=== PATIENT | female | born 1960 | race Caucasian/White ===

== ENCOUNTER 2018-09-27 10:21 | Day surgery (SDC) | payer MEDICARE ==
[2018-09-27] MEDS ORDERED: Marcaine 0.5% SDV 10 ML IJ ONE (10:22)
[2018-09-27] MEDS ORDERED: Depo-Medrol 40 MG/ML IM ONE (10:22)
[2018-09-27] MEDS ORDERED: Ketamine HCl 50 MG/ML ONE (11:41)
[2018-09-27] MEDS ORDERED: DIPRIVAN 200 MG/20 ML IV ONE (11:41)
--- NOTE | 2018-09-27 13:37 | XRAY ---
Indication: Bilateral SI joint injection. Intraoperative fluoroscopy was provided for 18 seconds. 4 digital spot images submitted for interpretation demonstrates posterior needle tip projecting over the inferior left and right SI joints. Correlate with intraoperative findings/report. Incidental partially visualized lower lumbar posterior fusion hardware.
--- NOTE | 2018-09-27 14:02 | XRAY ---
18 seconds fluoroscopy time in surgery for bilateral SI joint injections.
[2018-09-27] MEDS ORDERED: Lactated Ringers 1,000 ML IV ONE (15:25)
== END 2018-09-27 12:09 | disposition home or self-care (01) ==
LOC: SDC-PAIN 10:21
PROVIDERS: ATTEND Psychiatry & Neurology Pain Medicine
DX: M46.1 Sacroiliitis, not elsewhere classified (principal); E11.9 Type 2 diabetes mellitus without complications; I10 Essential (primary) hypertension; M06.9 Rheumatoid arthritis, unspecified; K21.9 Gastro-esophageal reflux disease without esophagitis; G47.30 Sleep apnea, unspecified; F41.8 Other specified anxiety disorders
CPT/HCPCS: 72202; 77002; 82962; G0260; 27096; J1030; J2704

== ENCOUNTER 2019-01-17 08:44 | Day surgery (SDC) | payer MEDICARE ==
[2019-01-17] MEDS ORDERED: Depo-Medrol 40 MG/ML IM ONE (08:45)
[2019-01-17] MEDS ORDERED: Xylocaine-Mpf 2% 5 Ml Vial IJ ONE (08:45)
[2019-01-17] MEDS ORDERED: DIPRIVAN 200 MG/20 ML IV ONE (09:57)
[2019-01-17] MEDS ORDERED: Ketamine HCl 50 MG/ML ONE (09:57)
--- NOTE | 2019-01-17 11:00 | XRAY ---
Indication: Bilateral L4-S1 MBB. Intraoperative fluoroscopy was provided for 21 seconds. Single digital spot image submitted for interpretation demonstrates posterior needle tips projecting over the expected course of the left and right L4-S1 nerve roots. Correlate with intraoperative findings/report. Incidental L5-S1 posterior fusion hardware.
--- NOTE | 2019-01-17 11:10 | XRAY ---
21 seconds fluoroscopy time in surgery for bilateral L4-S1 MBB.
[2019-01-17] MEDS ORDERED: Lactated Ringers 1,000 ML IV ONE (14:31)
== END 2019-01-17 10:40 | disposition home or self-care (01) ==
LOC: SDC-PAIN 08:44
PROVIDERS: ATTEND Psychiatry & Neurology Pain Medicine
DX: M47.816 Spondylosis without myelopathy or radiculopathy, lumbar region (principal); E11.9 Type 2 diabetes mellitus without complications; M06.9 Rheumatoid arthritis, unspecified; I10 Essential (primary) hypertension; G47.30 Sleep apnea, unspecified; F41.8 Other specified anxiety disorders; Z79.899 Other long term (current) drug therapy
CPT/HCPCS: 64493; 64494; 72020; 77002; 82962; J1030; J2704

== ENCOUNTER 2019-02-28 11:10 | Day surgery (SDC) | payer MEDICARE ==
[2019-02-28] MEDS ORDERED: Marcaine 0.5% SDV 10 ML IJ ONE (11:11)
[2019-02-28] MEDS ORDERED: Depo-Medrol 40 MG/ML IM ONE (11:11)
[2019-02-28] MEDS ORDERED: DIPRIVAN 200 MG/20 ML IV ONE (12:26)
[2019-02-28] MEDS ORDERED: Ketamine HCl 50 MG/ML ONE (12:27)
--- NOTE | 2019-02-28 13:09 | XRAY ---
Indication: Bilateral L4-S1 MBB. Intraoperative fluoroscopy was provided for 23 seconds. 3 digital spot images submitted for interpretation demonstrates posterior needle tips projecting over the expected course of the left and right L4-S1 nerve roots. Correlate with intraoperative findings/report. Incidental L5-S1 posterior fusion hardware and epidural catheter/tubing.
--- NOTE | 2019-02-28 13:28 | XRAY ---
23 seconds fluoroscopy time in surgery for bilateral L4-S1 MBB.
[2019-02-28] MEDS ORDERED: Lactated Ringers 1,000 ML IV ONE (15:31)
== END 2019-02-28 12:57 | disposition home or self-care (01) ==
LOC: SDC-PAIN 11:10
PROVIDERS: ATTEND Psychiatry & Neurology Pain Medicine
DX: M47.816 Spondylosis without myelopathy or radiculopathy, lumbar region (principal); E11.9 Type 2 diabetes mellitus without complications; M06.9 Rheumatoid arthritis, unspecified; I10 Essential (primary) hypertension; F41.8 Other specified anxiety disorders; K21.9 Gastro-esophageal reflux disease without esophagitis; M19.90 Unspecified osteoarthritis, unspecified site; Z86.79 Personal history of other diseases of the circulatory system; Z79.899 Other long term (current) drug therapy
CPT/HCPCS: 64493; 64494; 72020; 77002; 82962; J1030; J2704

== ENCOUNTER 2019-04-11 08:10 | Day surgery (SDC) | payer MEDICARE ==
[~2019-04-11 08:10] MED LIST: DIPRIVAN 200 MG/20 ML IV ONE; Ketamine HCl 50 MG/ML ONE
[2019-04-11] MEDS ORDERED: Marcaine 0.5% SDV 10 ML IJ ONE (08:11)
[2019-04-11] MEDS ORDERED: Xylocaine 1% Vial 30 ML PF IJ ONE (08:11)
--- NOTE | 2019-04-11 10:42 | XRAY ---
Indication: Right L4-S1 RFA. Intraoperative fluoroscopy was provided for 32 seconds. 3 digital spot images submitted for interpretation demonstrates posterior needle tips projecting over the expected course of the right L4-S1 nerve roots. Correlate with intraoperative findings/report. Incidental partially visualized L5-S1 posterior fusion hardware and epidural catheter/tubing.
--- NOTE | 2019-04-11 10:54 | XRAY ---
32 seconds fluoroscopy time in surgery for right L4-S1 RFA.
[2019-04-11] MEDS ORDERED: Lactated Ringers 1,000 ML IV ONE (13:37)
== END 2019-04-11 09:45 | disposition home or self-care (01) ==
LOC: SDC-PAIN 08:10
PROVIDERS: ATTEND Psychiatry & Neurology Pain Medicine
DX: M47.816 Spondylosis without myelopathy or radiculopathy, lumbar region (principal); M47.817 Spondylosis without myelopathy or radiculopathy, lumbosacral region; E11.9 Type 2 diabetes mellitus without complications; M06.9 Rheumatoid arthritis, unspecified; I10 Essential (primary) hypertension; K21.9 Gastro-esophageal reflux disease without esophagitis; G47.30 Sleep apnea, unspecified; F41.8 Other specified anxiety disorders; Z79.899 Other long term (current) drug therapy
CPT/HCPCS: 64635; 64636; 72100; 77002; J2001; J2704

== ENCOUNTER 2019-04-25 11:05 | Day surgery (SDC) | payer MEDICARE ==
[2019-04-25] MEDS ORDERED: Xylocaine 1% Vial 30 ML PF IJ ONE (11:06)
[2019-04-25] MEDS ORDERED: Marcaine 0.5% SDV 10 ML IM ONE (11:06)
[2019-04-25] MEDS ORDERED: Depo-Medrol 40 MG/ML IM ONE (11:06)
[2019-04-25] MEDS ORDERED: XYLOCAINE 1% HCL 20 ML MDV IJ ONE (11:06)
[2019-04-25] MEDS ORDERED: LOPRESSOR 5 MG/5 ML INJECTION IV ONE ×2 (11:42→11:45)
[2019-04-25] MEDS ORDERED: Ketamine HCl 50 MG/ML ONE (12:32)
[2019-04-25] MEDS ORDERED: DIPRIVAN 200 MG/20 ML IV ONE (12:32)
--- NOTE | 2019-04-25 14:05 | XRAY ---
Indication: Left L4-S1 RFA. Intraoperative fluoroscopy was provided for 33 seconds. 3 digital spot images submitted for interpretation demonstrates posterior needle tips projecting over the expected course of the left L4-S1 nerve roots. Correlate with intraoperative findings/report. Incidental partially visualized L5-S1 posterior fusion hardware and epidural catheter/tubing.
--- NOTE | 2019-04-25 14:07 | XRAY ---
33 seconds of fluoroscopy was used in surgery for a left L4-L5 and L5-S1 RFA.
[2019-04-25] MEDS ORDERED: Lactated Ringers 1,000 ML IV ONE (14:45)
== END 2019-04-25 13:11 | disposition home or self-care (01) ==
LOC: SDC-PAIN 11:05
PROVIDERS: ATTEND Psychiatry & Neurology Pain Medicine
DX: M47.816 Spondylosis without myelopathy or radiculopathy, lumbar region (principal); E11.9 Type 2 diabetes mellitus without complications; M06.9 Rheumatoid arthritis, unspecified; I10 Essential (primary) hypertension; G47.30 Sleep apnea, unspecified; F41.8 Other specified anxiety disorders; Z79.899 Other long term (current) drug therapy
CPT/HCPCS: 64635; 64636; 72100; 77002; 82962; J1030; J2001; J2704

== ENCOUNTER 2021-04-09 06:47 | Day surgery (SDC) | payer MEDICARE | END 2021-04-09 07:20 | disposition home or self-care (01) | LOC: SDC-PAIN 06:47 | PROVIDERS: ATTEND Psychiatry & Neurology Pain Medicine | DX: Z53.8 Procedure and treatment not carried out for other reasons (principal); R73.9 Hyperglycemia, unspecified | CPT/HCPCS: 82947 ==

== ENCOUNTER 2022-10-20 10:43 | Day surgery (SDC) | payer MEDICARE | END 2022-10-20 10:50 | LOC: SDC-PAIN 10:43 | PROVIDERS: ATTEND Psychiatry & Neurology Pain Medicine | DX: Z53.8 Procedure and treatment not carried out for other reasons (principal); E11.9 Type 2 diabetes mellitus without complications | CPT/HCPCS: 82947 ==

== ENCOUNTER 2022-10-20 10:54 | Emergency (ER) | payer MEDICARE ==
--- NOTE | 2022-10-20 10:57 | ERPHSYRPT ---
- History of Present Illness Time Seen by Provider: 10/20/22 10:57 Source: patient, old records Exam Limitations: clinical condition Physician History: This is a 61-year-old obese white female patient that was scheduled for surgery today. She was told to be n.p.o. after midnight. She has an insulin dependent diabetic. In route to her outpatient surgery appointment, her granddaughter noticed that the patient was becoming more confused and very diaphoretic. By the time she arrived at the outpatient surgery she was very confused and increasingly diaphoretic. Her blood sugar was taken and the measurement was 29. Patient was brought to the emergency department where we measured her blood sugar was 25. Patient denies nausea. She has no abdominal pain. Patient was given an amp of D50. Patient denies chest pain and she denies shortness of breath. She is a daily smoker of cigarettes. Timing/Duration: today Severity: moderate Associated Symptoms: diaphoresis, other, No nausea, No vomiting, No abdominal pain, No shortness of breath, No chest pain (Confused) Allergies/Adverse Reactions: levofloxacin [From Levaquin] Allergy (Severe, Verified 10/20/22 11:18) Home Medications: Albuterol Sulfate [Proair Respiclick] 10/20/22 [History] Aspirin 81 gm Chew [Baby Aspirin 81 mg Chew] 10/20/22 [History] Cetirizine HCl 10/20/22 [History] Cyclobenzaprine HCl 10/20/22 [History] Dexlansoprazole [Dexilant] 10/20/22 [History] Duloxetine HCl 10/20/22 [History] Fluticasone/Umeclidin/Vilanter [Trelegy Ellipta 100-62.5-25] 10/20/22 [History] Insulin Aspart [NovoLOG Insulin] 10/20/22 [History] Insulin Degludec [Tresiba Flextouch U-100] 10/20/22 [History] Insulin Lispro [Humalog Kwikpen U-100] 10/20/22 [History] Ipratropium/Albuterol Sulfate [Iprat-Albut 0.5-3(2.5) mg/3 ml] 1 neb INTRANASAL Q4HPRN PRN 10/20/22 [History] Linaclotide [Linzess] 2 tab PO DAILY 10/20/22 [History] Metformin HCl 500 mg [Glucophage 500 MG] 2 tab PO DAILY 10/20/22 [History] Metoprolol Tartrate 1 tab PO DAILY 10/20/22 [History] Naloxone HCl [Narcan] 1 spray INTRANASAL PRN 10/20/22 [History] Simvastatin 1 tab PO DAILY 10/20/22 [History] lisinopriL [Zestril] 1 tab PO DAILY 10/20/22 [History] Travel Risk - International Travel Have you traveled outside of the country in past 3 weeks: No - Coronavirus Screening Are you exhibiting any of the following symptoms?: No Close contact with a COVID-19 positive Pt in past 14-21 Days: No - Review of Systems Constitutional: Lethargy, Other Eyes: No Symptoms (Confused) Ears, Nose, & Throat: No Symptoms Respiratory: No Symptoms Cardiac: No Symptoms Abdominal/Gastrointestinal: No Symptoms Genitourinary Symptoms: No Symptoms Musculoskeletal: No Symptoms Skin: Other (Generalized clamminess and diaphoresis) Neurological: No Symptoms Psychological: No Symptoms Endocrine: No Symptoms Hematologic/Lymphatic: No Symptoms Immunological/Allergic: No Symptoms All Other Systems: Reviewed and Negative - Past Medical History Pertinent Past Medical History: Yes - Past Surgical History Past Surgical History: Yes - Nursing Vital Signs Nursing Vital Signs: Initial Vital Signs Blood Pressure 172/95 10/20/22 10:56 Pain Scale Pain Intensity 0 - Physical Exam General Appearance: mild distress, alert, lethargy, obese Eye Exam: PERRL/EOMI, eyes nml inspection Ears, Nose, Throat Exam: normal ENT inspection, moist mucous membranes Neck Exam: normal inspection, non-tender, supple, full range of motion Respiratory Exam: normal breath sounds, lungs clear, airway intact, No chest tenderness, No respiratory distress Cardiovascular Exam: regular rate/rhythm, normal heart sounds, normal peripheral pulses Gastrointestinal/Abdomen Exam: soft, normal bowel sounds, No tenderness Pelvic Exam: not done Rectal Exam: not done Back Exam: normal inspection, normal range of motion, No CVA tenderness, No vertebral tenderness Extremity Exam: normal inspection, normal range of motion, pelvis stable Neurologic Exam: alert, oriented x 3, cooperative, certified medication aide II-XII nml as tested, sensation nml Skin Exam: diaphoresis Lymphatic Exam: No adenopathy SpO2 Interpretation: normal O2 Delivery: Room Air - Course Nursing assessment & vital signs reviewed: Yes EKG Interpreted by Me: RATE (55), Sinus Rhythm, NORMAL AXIS, NORMAL INTERVALS, NORMAL QRS, Other (No evidence of acute ischemic changes.) Ordered Tests: Active Orders 24 hr Category Date Time Status Crane Oiler STAT Care 10/20/22 11:19 Active EKG-ER Only STAT Care 10/20/22 11:18 Active IV Insertion STAT Care 10/20/22 11:18 Active POCT Glucose Check STAT Care 10/20/22 11:18 Active Pulse Oximetry (ED) STAT Care 10/20/22 11:18 Active CBC W DIFF Stat Lab 10/20/22 11:31 Completed CMP Stat Lab 10/20/22 11:31 Completed CULTURE,URINE Stat Lab 10/20/22 12:52 Received ETHYL ALCOHOL Stat Lab 10/20/22 11:31 Completed Lactic Acid Urgent Lab 10/20/22 11:18 Completed MAGNESIUM Stat Lab 10/20/22 11:31 Completed POCT GLUCOSE Stat Lab 10/20/22 12:42 Completed TROPONIN Q4H Lab 10/20/22 11:31 Completed TROPONIN Q4H Lab 10/20/22 15:30 Ordered TROPONIN Q4H Lab 10/20/22 19:30 Ordered UA W/RFX UR CULTURE Stat Lab 10/20/22 12:52 Completed Medication Summary Generic Name Dose Route Start Last Admin Trade Name Freq PRN Reason Stop Dose Admin Ceftriaxone Sodium/Dextrose 1 g in 50 mls @ 100 mls/hr 10/20/22 13:23 10/20/22 13:28 Rocephin 1 Gm-D5w 50 Ml Bag IV 10/20/22 13:52 100 mls/hr STAT STA 100 mls/hr Administration Discontinued Medications Generic Name Dose Route Start Last Admin Trade Name Freq PRN Reason Stop Dose Admin Dextrose 50 ml 10/20/22 11:18 10/20/22 10:58 Dextrose 50%-Water 50 Ml Abboject IV 10/20/22 11:19 50 ml STAT ONE Administration Sodium Chloride 1,000 mls @ 999 mls/hr 10/20/22 11:18 10/20/22 12:26 Sodium Chloride 0.9% 1000 Ml IV 10/20/22 12:18 Infused .Q1H1M STA Infusion Sodium Chloride Confirm 10/20/22 11:23 Sodium Chloride 0.9% 1000 Ml Administered 10/20/22 11:24 Dose 1,000 mls @ ud .ROUTE .STK-MED ONE Ceftriaxone Sodium/Dextrose Confirm 10/20/22 13:27 Rocephin 1 Gm-D5w 50 Ml Bag Administered 10/20/22 13:28 Dose 1 g in 50 mls @ ud IV .STK-MED ONE Ondansetron HCl 4 mg 10/20/22 11:18 10/20/22 11:26 Ondansetron Hcl 4 Mg/2 Ml Vial IV 10/20/22 11:19 4 mg STAT ONE Administration Ondansetron HCl Confirm 10/20/22 11:23 Ondansetron Hcl 4 Mg/2 Ml Vial Administered 10/20/22 11:24 Dose 4 mg .ROUTE .STK-MED ONE Oxycodone/Acetaminophen 1 tab 10/20/22 12:59 10/20/22 13:01 Oxycodone Hcl/Apap 5 Mg/325 Mg Tablet PO 10/20/22 13:00 1 tab STAT STA Administration Oxycodone/Acetaminophen Confirm 10/20/22 13:01 Oxycodone Hcl/Apap 5 Mg/325 Mg Tablet Administered 10/20/22 13:02 Dose 1 tab .ROUTE .STK-MED ONE Lab/Rad Data: Laboratory Result Diagrams 10/20/22 11:31 10/20/22 11:31 Laboratory Results 10/20/22 10/20/22 10/20/22 Range/Units 12:52 12:42 11:31 WBC (4.0-10.5) x10^3/uL RBC (4.1-5.4) x10^6/uL Hgb (12.0-16.0) g/dL Hct (35-47) % MCV (78-100) fL MCH (26-32) pg MCHC (32-36) g/dL RDW (11.5-14.0) % Plt Count (150-450) x10^3/uL MPV (7.5-11.0) fL Gran % (36.0-66.0) % Immature Gran % (Auto) (0.00-0.4) % Nucleat RBC Rel Count (0.00-0.1) % Eos # (Auto) (0-0.5) x10^3/uL Immature Gran # (Auto) (0.00-0.03) x10^3u/L Absolute Lymphs (auto) (1.0-4.6) x10^3/uL Absolute Monos (auto) (0.0-1.3) x10^3/uL Absolute Nucleated RBC (0.00-0.01) x10^3u/L Lymphocytes % (24.0-44.0) % Monocytes % (0.0-12.0) % Eosinophils % (0.00-5.0) % Basophils % (0.0-0.4) % Absolute Granulocytes (1.4-6.9) x10^3/uL Basophils # (0-0.4) x10^3/uL Sodium (137-145) mmol/L Potassium (3.5-5.1) mmol/L Chloride (98-107) mmol/L Carbon Dioxide (22-30) mmol/L Anion Gap (5-15) MEQ/L BUN (7-17) mg/dL Creatinine (0.52-1.04) mg/dL Estimated GFR ML/MIN Glucose (74-106) mg/dL POC Glucometer 46 L* (50 to 500) mg/dL Lactic Acid (0.4-2.0) Calcium (8.4-10.2) mg/dL Magnesium (1.6-2.3) mg/dL Total Bilirubin (0.2-1.3) mg/dL AST (14-36) U/L ALT (0-35) U/L Alkaline Phosphatase (38-126) U/L Troponin I < 0.012 (0.000-0.034) ng/mL Serum Total Protein (6.3-8.2) g/dL Albumin (3.5-5.0) g/dL Urine Color Dark Yellow A (Yellow) Urine Appearance Clear (Clear) Urine pH 5.0 (4.6-8.0) Ur Specific [place] >=1.030 A (1.005-1.030) Urine Protein 30 (Negative) Urine Glucose (UA) Negative (Negative) mg/dL Urine Ketones Trace A (Negative) Urine Blood Negative (Negative) Urine Nitrite Negative (Negative) Urine Bilirubin Negative (Negative) Urine Urobilinogen 1.0 A (0.2) mg/dL Ur Leukocyte Esterase Small A (Negative) U Hyaline Cast (Auto) 3-5 A (0-2) /LPF Urine Microscopic RBC 0-2 (0-5) /HPF Urine Microscopic WBC 6-10 A (0-5) /HPF Ur Epithelial Cells Rare (None Seen) /HPF Urine Bacteria Rare A (None Seen) /HPF Urine Culture Reflexed YES (NO) Ethyl Alcohol (0-10) mg/dL 10/20/22 10/20/22 10/20/22 Range/Units 11:31 11:31 11:18 WBC 10.9 H (4.0-10.5) x10^3/uL RBC 4.19 (4.1-5.4) x10^6/uL Hgb 12.6 (12.0-16.0) g/dL Hct 40.9 (35-47) % MCV 97.6 (78-100) fL MCH 30.1 (26-32) pg MCHC 30.8 L (32-36) g/dL RDW 12.4 (11.5-14.0) % Plt Count 249 (150-450) x10^3/uL MPV 9.9 (7.5-11.0) fL Gran % 56.8 (36.0-66.0) % Immature Gran % (Auto) 0.3 (0.00-0.4) % Nucleat RBC Rel Count 0.0 (0.00-0.1) % Eos # (Auto) 0.15 (0-0.5) x10^3/uL Immature Gran # (Auto) 0.03 (0.00-0.03) x10^3u/L Absolute Lymphs (auto) 3.34 (1.0-4.6) x10^3/uL Absolute Monos (auto) 1.10 (0.0-1.3) x10^3/uL Absolute Nucleated RBC 0.00 (0.00-0.01) x10^3u/L Lymphocytes % 30.7 (24.0-44.0) % Monocytes % 10.1 (0.0-12.0) % Eosinophils % 1.4 (0.00-5.0) % Basophils % 0.7 (0.0-0.4) % Absolute Granulocytes 6.17 (1.4-6.9) x10^3/uL Basophils # 0.08 (0-0.4) x10^3/uL Sodium 141 (137-145) mmol/L Potassium 4.4 (3.5-5.1) mmol/L Chloride 109 H (98-107) mmol/L Carbon Dioxide 26 (22-30) mmol/L Anion Gap 11.3 (5-15) MEQ/L BUN 18 H (7-17) mg/dL Creatinine 0.80 (0.52-1.04) mg/dL Estimated GFR > 60.0 ML/MIN Glucose 66 L (74-106) mg/dL POC Glucometer (50 to 500) mg/dL Lactic Acid 0.7 (0.4-2.0) Calcium 9.1 (8.4-10.2) mg/dL Magnesium 1.6 (1.6-2.3) mg/dL Total Bilirubin 0.30 (0.2-1.3) mg/dL AST 25 (14-36) U/L ALT 21 (0-35) U/L Alkaline Phosphatase 89 (38-126) U/L Troponin I (0.000-0.034) ng/mL Serum Total Protein 6.6 (6.3-8.2) g/dL Albumin 3.8 (3.5-5.0) g/dL Urine Color (Yellow) Urine Appearance (Clear) Urine pH (4.6-8.0) Ur Specific [place] (1.005-1.030) Urine Protein (Negative) Urine Glucose (UA) (Negative) mg/dL Urine Ketones (Negative) Urine Blood (Negative) Urine Nitrite (Negative) Urine Bilirubin (Negative) Urine Urobilinogen (0.2) mg/dL Ur Leukocyte Esterase (Negative) U Hyaline Cast (Auto) (0-2) /LPF Urine Microscopic RBC (0-5) /HPF Urine Microscopic WBC (0-5) /HPF Ur Epithelial Cells (None Seen) /HPF Urine Bacteria (None Seen) /HPF Urine Culture Reflexed (NO) Ethyl Alcohol < 10 (0-10) mg/dL - Progress Progress: improved, re-examined Progress Note: 10/20/22 12:45 Patient's medical issue is 1 of moderate complexity. Level complexity in the work-up performed is based on review of the patient's past medical history, review of the patient's medication list, review of the patient's drug allergy list, history present illness and physical findings on examination. The work-up in this patient includes placement of intravenous line, Accu-Chek, infusion of amp of D50, infusion of normal saline solution, CBC, CMP, twelve-lead EKG, troponin level and urinalysis. I interpreted the laboratory studies. The marshal ent's blood sugar is improving. Clinically, she is doing very well. Patient did take her long-acting insulin late last evening and did not eat. I believe this patient's blood sugar will continue to improve it will take a little more time. We will continue to observe her. We are awaiting the urinalysis test. She has no chest pain. She has no shortness of breath. Patient states she is feeling much improved. 10/20/22 13:51 I interpreted the laboratory results. The patient has a urinary tract infection. In addition her presenting complaint the clinical picture is hypoglycemia. Medical Desision Making - Independent Historian Additional History obtained from: Family (Granddaughter) - Diagnostic Testing Diagnostic test were ordered, analyzed, and reviewed by me: Yes - Risk of complications The pt has a mod risk of morbidity or mortality based on: Need for prescription drug management - Departure Departure Disposition: Home Clinical Impression: Hypoglycemia, UTI (urinary tract infection) Condition: Stable Critical Care Time: Yes Critical Care Time(excluding separately billable procedures): Critical 30-74 mins Referrals: MIKE LEBLANC NP [Primary Care Provider] - Follow up/PCP as directed Additional Instructions: Plenty of fluids. Hold your insulin and diabetic medications for 24 hours. Restart your diabetic medications tomorrow if you are eating and drinking well. Monitor your blood sugar closely. Take your antibiotics as prescribed. Call your primary care provider today, 10/20/2022 to make arrange for an appointment for further evaluation management. Prescriptions: Cefdinir 300 mg PO BID #14 cap
[2022-10-20 11:16] VITALS: TEMP 36.4
[2022-10-20] MEDS ORDERED: Zofran 4 MG/2 ML VIAL IV ONE (11:18)
[2022-10-20] MEDS ORDERED: Sodium Chloride 0.9% 1000 ML 1,000 ML IV STA (11:18)
[2022-10-20] MEDS ORDERED: D50W 50 ml Abboject IV ONE (11:18)
[2022-10-20] MEDS ORDERED: Zofran 4 MG/2 ML VIAL ONE (11:23)
[2022-10-20] MEDS ORDERED: Sodium Chloride 0.9% 1000 ML 1,000 ML ONE (11:23)
[2022-10-20 11:33] LABS: Absolute Neutrophil Ct (ANC) 6.17 x10^3/uL (1.4-6.9); BASOPHIL % 0.7 % (0.0-0.4); Basophil (Absolute #) 0.08 x10^3/uL (0-0.4); Eosinophil % 1.4 % (0.00-5.0); Eosinophil (Absolute #) 0.15 x10^3/uL (0-0.5); Hematocrit 40.9 % (35-47); Hemoglobin 12.6 g/dL (12.0-16.0); IMMATURE GRAN # 0.03 x10^3u/L (0.00-0.03); IMMATURE GRAN % 0.3 % (0.00-0.4); Lymphocyte (Absolute #) 3.34 x10^3/uL (1.0-4.6); Lymphocytes % 30.7 % (24.0-44.0); Mean Cell Volume 97.6 fL (78-100); Mean Corpuscular Hemoglobin 30.1 pg (26-32); Mean Corpuscular Hgb Concent. 30.8 g/dL (32-36); Mean Platelet Volume 9.9 fL (7.5-11.0); Monocytes % 10.1 % (0.0-12.0); Neutrophil % 56.8 % (36.0-66.0); Platelet Count 249 x10^3/uL (150-450); Red Blood Count 4.19 x10^6/uL (4.1-5.4); Red Cell Distribution Width 12.4 % (11.5-14.0); White Blood Count 10.9 x10^3/uL (4.0-10.5)
[2022-10-20 11:50] LABS: ALBUMIN 3.8 g/dL (3.5-5.0); ALKALINE PHOSPHATASE 89 U/L (38-126); ANION GAP 11.3 MEQ/L (5-15); BLOOD UREA NITROGEN 18 mg/dL (7-17); CHLORIDE 109 mmol/L (98-107); Calcium 9.1 mg/dL (8.4-10.2); Carbon Dioxide 26 mmol/L (22-30); EST GLOMERULAR FILTRATION RATE > 60.0 ML/MIN; ETHYL ALCOHOL < 10 mg/dL (0-10); Glucose 66 mg/dL (74-106); MAGNESIUM 1.6 mg/dL (1.6-2.3); Potassium 4.4 mmol/L (3.5-5.1); SGOT/AST 25 U/L (14-36); SGPT/ALT 21 U/L (0-35); SODIUM 141 mmol/L (137-145); Total Protein 6.6 g/dL (6.3-8.2)
[2022-10-20] MEDS ORDERED: PERCOCET TABLET 5/325MG PO STA (12:59)
[2022-10-20] MEDS ORDERED: PERCOCET TABLET 5/325MG ONE (13:01)
[2022-10-20 13:02] LABS: Appearance Clear (Clear); Bilirubin Negative (Negative); Blood Negative (Negative); Glucose, Urine Negative (Negative); Ketones Trace (Negative); Leukocyte Esterase Small (Negative); Nitrite Negative (Negative); Protein,Urine Dip 30 (Negative); Specific Gravity >=1.030 (1.005-1.030)
[2022-10-20 13:20] LABS: ADD URINE CULTURE? YES (NO); Bacteria Rare /HPF (None Seen); Epithelial Cells Rare /HPF (None Seen); RBC 0-2 /HPF (0-5)
[2022-10-20] MEDS ORDERED: ROCEPHIN 1 Gm-D5w 50 ml Bag** 1 G/50 ML IVPB IV STA (13:23)
[2022-10-20] MEDS ORDERED: ROCEPHIN 1 Gm-D5w 50 ml Bag** 1 G/50 ML IVPB IV ONE (13:27)
[2022-10-20 14:04] VITALS: BP 122/75; PULSE 60; RESP 16; O2SAT 94
== END 2022-10-20 14:18 | disposition home or self-care (01) ==
LOC: ED 10:54
DX: E11.649 Type 2 diabetes mellitus with hypoglycemia without coma (principal); N39.0 Urinary tract infection, site not specified; Z79.4 Long term (current) use of insulin; Z79.84 Long term (current) use of oral hypoglycemic drugs; Z79.899 Other long term (current) drug therapy; Z72.0 Tobacco use
CPT/HCPCS: 36000; 36415; 80053; 81001; 82077; 82947; 83605; 83735; 84484; 85025; 87086; 93005; 93041; 94760; 96365; 96374; 96375; 99284; 99291; J0696; J2405; A9270-GY

== ENCOUNTER → 2023-12-14 | Day surgery (SDC) | payer MEDICARE, OTHER ==
[~2023-12-14] MED LIST changes: +Decadron 4 MG INJ IV ONE; -Ketamine HCl 50 MG/ML ONE; +LIDOCAINE HCL 1% AMPUL 5 ML IJ ONE; +Sodium Chloride 0.9(Preservative Free) 10 ML IJ ONE
--- NOTE | 2023-12-14 14:19 | XRAY ---
Indication: Right L4-S1 transforaminal LUBNA. Intraoperative fluoroscopy provided for 41 seconds. 9 digital spot images submitted for interpretation demonstrates posterior needle tips projecting over the expected right L4 and L5 nerve roots. Small amount of contrast injected for needle tip placement. Correlate with intraoperative findings/report. Incidental bilateral L5-S1 fusion hardware.
--- NOTE | 2023-12-14 14:21 | XRAY ---
Indication: Right piriformis injection. Intraoperative fluoroscopy provided for 13 seconds. Single digital spot images submitted for interpretation demonstrates posterior needle tip projecting over the right piriformis. Small amount of contrast injected for needle placement. Correlate with intraoperative findings/report. Incidental incompletely visualized lumbosacral junction fusion hardware.
--- NOTE | 2023-12-14 14:25 | XRAY ---
13 seconds of fluoroscopy was used in surgery for a right piriformis injection.
--- NOTE | 2023-12-14 14:25 | XRAY ---
41 seconds of fluoroscopy was used in surgery for a right L4-S1 transforaminal LUBNA.
== END ==
LOC: SDC-PAIN 11:12
PROVIDERS: ATTEND Psychiatry & Neurology Pain Medicine
DX: M54.16 Radiculopathy, lumbar region (principal); E11.9 Type 2 diabetes mellitus without complications; M79.18 Myalgia, other site
CPT/HCPCS: 20552; 64483; 64484; 72100; 72170; 77002; 77003; 82947; J1100; J2704; Q9966

== ENCOUNTER 2024-06-06 09:13 | Day surgery (SDC) | payer MEDICARE, OTHER ==
[2024-06-06] MEDS ORDERED: dexAMETHasone sodium phosphate IJ ONE (09:14)
[2024-06-06] MEDS ORDERED: LIDOCAINE HCL 1% AMPUL 5 ML IJ ONE (09:14)
[2024-06-06] MEDS ORDERED: Sodium Chloride 0.9(Preservative Free) 10 ML IJ ONE (09:14)
[2024-06-06] MEDS ORDERED: propofoL IV ONE (10:32)
[2024-06-06] MEDS ORDERED: PHENYLEPHRINE HCL ONE (10:42)
[2024-06-06] MEDS ORDERED: Lactated Ringers 1,000 ML IV ONE (11:07)
[2024-06-06] MEDS ORDERED: MORPHINE SULFATE 2 MG INJ ONE (11:07)
--- NOTE | 2024-06-06 12:33 | XRAY ---
Indication: Right L2-L4 transforaminal LUBNA. Intraoperative fluoroscopy provided for 27 seconds. 4 digital spot image submitted for interpretation demonstrates posterior needle tips projecting over expected right L2 and L3 nerve roots. Small amount of contrast injected for needle tip placement. Correlate with intraoperative findings/report. Incidental incompletely visualized lower lumbar fusion hardware.
--- NOTE | 2024-06-06 12:34 | XRAY ---
Indication: Right piriformis injection. Intraoperative fluoroscopy provided for 7 seconds. Single digital spot image submitted for interpretation demonstrates posterior needle tip projecting overwrite piriformis. Small amount of contrast injected for needle tip placement. Correlate with intraoperative findings/report. Incidental incompletely visualized lumbosacral junction fusion hardware.
--- NOTE | 2024-06-06 12:52 | XRAY ---
27 seconds of fluoroscopy were used in surgery for a right L2-L4 transforaminal LUBNA.
--- NOTE | 2024-06-06 12:53 | XRAY ---
7 seconds of fluoroscopy were used in surgery for a right piriformis muscle injection.
== END 2024-06-06 11:39 | disposition home or self-care (01) ==
LOC: SDC-PAIN 09:13
PROVIDERS: ATTEND Psychiatry & Neurology Pain Medicine
DX: M54.16 Radiculopathy, lumbar region (principal); M79.18 Myalgia, other site; E11.9 Type 2 diabetes mellitus without complications
CPT/HCPCS: 20552; 64483; 64484; 72100; 72170; 77002; 82947; J1100; J2270; J2371; J2704; Q9966

== ENCOUNTER 2024-12-12 09:14 | Day surgery (SDC) | payer MEDICARE, OTHER ==
[2024-12-12] MEDS ORDERED: LIDOCAINE HCL 1% 50 MG/5 ML VL IJ ONE (09:15)
[2024-12-12] MEDS ORDERED: Sodium Chloride 0.9(Preservative Free) 10 ML IJ ONE (09:15)
[2024-12-12] MEDS: LOPRESSOR INJECTION IV ONE (09:57)
[2024-12-12] MEDS ORDERED: propofoL IV ONE (10:43)
[2024-12-12] MEDS ORDERED: Lactated Ringers 1,000 ML IV ONE (11:01)
[2024-12-12] MEDS ORDERED: MORPHINE SULFATE 4 MG INJ ONE (11:02)
--- NOTE | 2024-12-12 12:30 | XRAY ---
Indication: Right L4-S1 transforaminal LUBNA. Intraoperative fluoroscopy provided for 29 seconds. 4 digital spot image submitted for interpretation demonstrates posterior needle tips projecting over expected right L4 and L5 nerve roots. Small amount of contrast injected for needle tip placement. Correlate with intraoperative findings/report. Incidental bilateral L5-S1 fusion hardware.
--- NOTE | 2024-12-12 12:34 | XRAY ---
Indication: Right piriformis injection. Intraoperative fluoroscopy provided for 8 seconds. Single digital spot image submitted for interpretation demonstrates posterior needle tip projecting over right piriformis. Small amount of contrast injected for needle tip placement. Correlate with intraoperative findings/report. Incidental incompletely visualized lumbosacral junction fusion hardware.
--- NOTE | 2024-12-12 12:52 | XRAY ---
8 seconds of fluoroscopy was used in surgery for a right piriformis injection.
--- NOTE | 2024-12-12 12:53 | XRAY ---
29 seconds of fluoroscopy was used in surgery for a right L4-S1 transforaminal LUBNA.
== END 2024-12-12 11:55 | disposition home or self-care (01) ==
LOC: SDC-PAIN 09:14
PROVIDERS: ATTEND Psychiatry & Neurology Pain Medicine
DX: M54.16 Radiculopathy, lumbar region (principal); E11.9 Type 2 diabetes mellitus without complications; M79.18 Myalgia, other site